=== PATIENT | male | born 1945 | race Caucasian/White ===

== ENCOUNTER → 2016-08-22 | Outpatient (REF) ==
[~2016-08-22] MED LIST: BACTRIM DS 8001 TAB PO; CIPRO 500MG TA500 MG PO; COLACE 100100 MG/CAP PO; NORCO 325 MG-51 TAB PO; PYRIDIUM 100MG100 MG PO
[2016-08-22 16:50] LABS: PSA-TOTAL 0.39 ng/mL (0-4)
[2016-08-22 17:33] LABS: THYROID STIMULATING HORMONE 1.34 uIU/mL (0.465-4.680)
== END ==
LOC: ZLAB.WCH 15:23
PROVIDERS: Medical Genetics Clinical Genetics (M.D.)
DX: Z01.89 Encounter for other specified special examinations (principal)
CPT/HCPCS: G0103

== ENCOUNTER → 2017-06-12 | Outpatient (CLI) | payer MEDICARE, OTHER | LOC: COL.VAS 08:36 | DX: H54.62 Unqualified visual loss, left eye, normal vision right eye (principal) ==

== ENCOUNTER → 2018-10-01 | Outpatient (REF) ==
[2018-10-01 17:05] LABS: PSA-TOTAL 0.42 ng/mL (0-4)
[2018-10-01 17:13] LABS: THYROID STIMULATING HORMONE 1.17 uIU/mL (0.465-4.680)
== END ==
LOC: ZLAB.WCH 15:54
PROVIDERS: Internal Medicine
DX: Z01.89 Encounter for other specified special examinations (principal)
CPT/HCPCS: G0103

== ENCOUNTER → 2019-06-24 | Outpatient (CLI) | payer MEDICARE, OTHER | LOC: COL.RAD 07:23 | DX: M25.551 Pain in right hip (principal) | CPT/HCPCS: J3301; Q9967 ==

== ENCOUNTER 2019-11-24 10:27 | Inpatient (IN) | payer MEDICARE, OTHER ==
[~2019-11-24] VITALS: Ht 180.3 cm; Wt 66.8 kg
[2020-01-04] VITALS (11 sets, daily range): BP systolic 92–125; BP diastolic 53–81; PULSE 57–75; TEMP 97.1–98.2
[2020-01-04] MEDS ORDERED: IRON TABLETS325 MG PO (04:06)
[2020-01-04] MEDS ORDERED: ONE-A-DAY ESSE1 EACH PO (04:07)
[2020-01-04] MEDS ORDERED: VITAMIN C500 MG PO (04:07)
[2020-01-04] MEDS ORDERED: TYLENOL 325MG325 MG PO (06:02)
[2020-01-04] MEDS ORDERED: FOLIC ACID0.4 MG PO (06:03)
--- NOTE | 2020-01-04 06:13 | NUR ---
Pt. arrived to the floor via wheelchair. Pt. is A&OX3, assessment complete. INT started to lt. forearm, 20G, 1 attempt. IV fluids started to IV. Pre-op complete.
[2020-01-04 06:44] LABS: INR 1.2 (0.8-3.0); PROTHROMBIN TIME 13.5 SECONDS (9.7-12.8)
--- NOTE | 2020-01-04 10:20 | NUR ---
PT TO ROOM 328 PER BED WITH REPORT FROM MARTHA WELFARE ANALYST. PT IS A/O X3 DROWSEY AROUSES TO VERBAL. IV TO RFA PER PUMP. LUNGS CTA, BOWEL SOUNDS PRESENT DRESSING TO RIGHT HIP CDI WITH AQUACEL OVER INCISION. SCDS AND TEDS BILATERALLY. PT REPORTS INCREASING PAIN TO RIGHT HIP. PO PAIN MEDS STARTED.
--- NOTE | 2020-01-04 13:55 | NUR ---
PT RESTING QUIETLY IN BED.
--- NOTE | 2020-01-04 14:23 | NUR ---
Cradle Placer met with patient and his , Aaliyah (ph#[phone]) to discuss discharge planning. Patient lives in [place], [place] with his and sees Dr. Maher for primary care. Patient obtains medications from [facility]. Aaliyah advised she wants to utilize [facility], however she does not have a smart phone. BACILIO provided a GoodRx card to Aaliyah. Patient has been using a walker at home due to hip pain. Aaliyah advised patient started using the walker after his knee replacement and has been using it since. Patient is normally independent with ADLS except for putting on his right shoe, which Aaliyah assists him with. Patient does not have DPOA-[facility] but was interested in taking home the form. BACILIO provided. Patient plans to return home at discharge. BACILIO will continue to follow for any discharge needs.
--- NOTE | 2020-01-04 14:26 | NUR ---
PT UP TO SIDE OF BED TO DANGLE.
--- NOTE | 2020-01-04 19:35 | NUR ---
Report received, assumed care for fisher lampara net. Assessment complete. 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 Re-oriented but quickly forgets where he is. Denies pain/shorntess of breath. VS stable. C/O nausea-zofran given per dr order. Plan of care discussed for ambulation this shift/HS meds/pain control. Verbalizes understanding. Aquacell to right hip CDI. Fresh ice pack applied. Call light in reach. Will monitor.
--- NOTE | 2020-01-04 20:30 | NUR ---
Attempt to ambulate at this time. Sat on side of bed. When assisted to standing position started to dry heave/turned pale in color/c/o dizziness/diaphoretic. Assisted back to sitting position. Will attempt again later this shift. Will monitor.
[2020-01-05] VITALS (7 sets, daily range): BP systolic 106–133; BP diastolic 62–78; PULSE 80–90; TEMP 98–98.6
--- NOTE | 2020-01-05 03:43 | NUR ---
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 Re-oriented several times but conversation very confused. Denies pain/shortness of breath/nausea. IV fluids DCd-INTd. Tolerating PO/output more than adequate. SCDs bilat. Teds on. Fresh ice pack applied. Call light in reach. Will monitor.
[2020-01-05 06:50] LABS: HEMATOCRIT 32.4 % (42.0-52.0)
--- NOTE | 2020-01-05 10:30 | NUR ---
Patient is very confused and keeps trying to get up. He is forgetting he is in the hospital and thinks he is at home. Patient denies pain or nausea. Dressing to right hip is C/D/I. ANGELICA tashkimberlyn to BLE. Attempted to call his to explain patient will not be discharging today but she did not answer. Patient is back in bed with the bed alarm on. No other changes at this time. Call light within reach.
--- NOTE | 2020-01-05 16:41 | NUR ---
Research Clerk followed up with patient's to review discharge plan. SW reviewed OT recommendation of home vs post acute rehab. Patient's , Aaliyah advised she still feels comfortable with patient returning home and that she has outpatient PT set up for patient. Aaliyah reports patient experienced similar confusion after his last surgery a few months ago, but recognizes that this seems to be a little worse than last time. Aaliyah states she works from home and is with patient 19/01. SW will continue to follow.
--- NOTE | 2020-01-05 18:30 | NUR ---
Patients confusion is a little better. He has voided 3 times since catheter was discontinued. He is refusing to use a urinal. His was updated about patients status. Patient has walked in the hallway once this evening. He sat up in the chair most the afternoon. Assisted patient back to bed after supper. Patient stated he is planning to be in bed for the night. Bed alarm on. He refused SCD's. ANGELICA hose on. No other changes at this time. Call light within reach.
--- NOTE | 2020-01-05 20:15 | NUR ---
Pt assisted to bathroom, gait slow and steady. Is alert, confused to place and time. Voids and back to bed with one assist, walker and gait belt. Takes HS meds without problem including Pollock for right hip pain. SL to left forearm. Aquacel drsg d\I to right hip. Bed alarm on.
--- NOTE | 2020-01-05 21:30 | NUR ---
IMPULSIVE, ASSISTED TO BATHROOM, VOIDS AND BACK TO BED. BED ALARM ON.
[2020-01-06 03:37] VITALS: BP 118/67; PULSE 84; TEMP 98.4
--- NOTE | 2020-01-06 03:50 | NUR ---
IMPULSIVE, ASSISTED TO BATHROOM, VOIDS AND BACK TO BED. DENIES PAIN AT THIS TIME.
--- NOTE | 2020-01-06 04:42 | NUR ---
MORE ORIENTED THIS AM. WANTS TO GO HOME.
[2020-01-06 06:56] LABS: HEMOGLOBIN 10.9 g/dl (13.5-18.0)
[2020-01-06 07:06] LABS: HEMATOCRIT 32.1 % (42.0-52.0)
[2020-01-06 07:34] VITALS: BP 109/66; PULSE 90; TEMP 97.7
--- NOTE | 2020-01-06 10:04 | NUR ---
RADHA DICKENS IN TO SEE PT THIS AM. PLAN ON DISCHARGE LATER TODAY, SPOKE WITH OFELIA BURNETT AND PLAN ON PATTY @ 1954.
--- NOTE | 2020-01-06 11:32 | NUR ---
First visit from the biodiesel product manager. No needs right now.
[2020-01-06 11:43] VITALS: BP 109/63; PULSE 84; TEMP 98.8
--- NOTE | 2020-01-06 13:56 | NUR ---
DISCHARGE INSTRUCTIONS REVIEWED WITH PATIENT. QUESTIONS ANSWERED. PT PLAN ON DISCHARGE AROUND 1430 WITH .
--- NOTE | 2020-01-06 14:56 | NUR ---
CALLED [facility] TO REVIEW INSTUCTIONS AND SHE SAID THAT SHE WOULD CALL BACK IF SHE HAD QUESTIONS AFTER GETTING HOME.
== END 2020-01-06 14:30 | disposition home or self-care (01) | DRG 470 ==
LOC: JCC 01-04 05:14
PROVIDERS: ADMIT Orthopaedic Surgery Sports Medicine
PROC: 0SR90JZ Replacement of Right Hip Joint with Synthetic Substitute, Open Approach (ICD-10-PCS; principal; 2020-01-04 07:30)
DX: M16.11 Unilateral primary osteoarthritis, right hip (principal); N39.0 Urinary tract infection, site not specified; G20 Parkinson's disease; Z86.718 Personal history of other venous thrombosis and embolism; Z85.820 Personal history of malignant melanoma of skin
CPT/HCPCS: A4314; A9284; C1713; C1776; J0690; J2250; J2405; J2704; J3010; J7120

== ENCOUNTER 2021-07-02 16:39 | Emergency (ER) | payer MEDICARE, OTHER ==
[~2021-07-02] VITALS: Ht 182.9 cm; Wt 68.2 kg
[~2021-07-02 16:39] MED LIST changes: +FOLIC ACID0.4 MG PO; +IRON TABLETS325 MG PO; +ONE-A-DAY ESSE1 EACH PO; +TYLENOL 325MG325 MG PO; +VITAMIN C500 MG PO
[2021-07-02 16:54] LABS: BASO # 0.1 K/mm3 (0.0-0.2); BASO % 0.5 % (0.0-2.0); EOS # 0.4 K/mm3 (0.0-0.7); EOS % 3.8 % (0.0-4.0); GRAN % 51.9 % (42.2-75.2); HEMATOCRIT 37.8 % (42.0-52.0); HEMOGLOBIN 12.9 g/dl (13.5-18.0); LYMPH # 3.3 K/mm3 (1.2-3.4); LYMPH % 34.1 % (20.0-51.0); MEAN CELL VOLUME 92 fl (80.0-100.0); MEAN CORPUSCULAR HEMOGLOBIN 31 pg (27-31); MEAN CORPUSCULAR HGB CONC 34 g/dl (33.0-37.0); MEAN PLATELET VOLUME 9.1 fl (7.4-10.4); MONO # 0.8 K/mm3 (0.1-0.6); MONO % 8.8 % (1.7-9.3); PLATELET COUNT 215 K/mm3 (130-400); RED BLOOD COUNT 4.12 M/mm3 (4.20-5.60); REDCELL DISTRIBUTION WIDTH-CV 13.1 % (11.5-14.5)
[2021-07-02 17:14] LABS: ALANINE AMINOTRANSFERASE 17 U/L (0-55); ALBUMIN 3.8 gm/dL (3.4-4.8); ALKALINE PHOSPHATASE 70 U/L (40-150); ANION GAP 11 mmol/L (7-16); AST,SGOT 32 U/L (5-34); BILIRUBIN,TOTAL 0.5 mg/dL (0.2-1.2); BLOOD UREA NITROGEN 25 mg/dL (8-26); CALCIUM 8.4 mg/dL (8.4-10.2); CARBON DIOXIDE 24 mmol/L (23-31); CHLORIDE 104 mmol/L (98-107); GLUCOSE 128 mg/dL (70-99); POTASSIUM 3.9 mmol/L (3.5-4.5); SODIUM 139 mmol/L (136-145); TOTAL PROTEIN 6.9 gm/dL (6.2-8.1)
[2021-07-02 17:42] LABS: TROPONIN-I < 0.010 ng/mL (0.00-0.033)
[2021-07-02 19:08] VITALS: BP 129/81; PULSE 82; TEMP 98
== END 2021-07-02 19:08 | disposition home or self-care (01) ==
LOC: COL.ER 16:39
PROVIDERS: Physician Assistant
DX: F03.90 Unspecified dementia, unspecified severity, without behavioral disturbance, psychotic disturbance, mood disturbance, and anxiety (principal); G20 Parkinson's disease